=== PATIENT | male | born 1955 ===

== ENCOUNTER 2023-09-21 15:28 | Outpatient (REF) | payer MEDICARE, OTHER, SELFPAY ==
[2023-09-21 18:07] LABS: Vitamin D 25-OH Total 54.3 ng/mL (>30)
== END 2023-09-21 15:29 | disposition home or self-care (01) ==
LOC: HO.MANLDS 15:28
PROVIDERS: Visit Provider Internal Medicine
DX: E55.9 Vitamin D deficiency, unspecified (principal)
CPT/HCPCS: 36415; 82306